=== PATIENT | male | born 1965 | race Caucasian/White ===

== ENCOUNTER 2019-07-03 19:25 | Emergency (ER) | payer SELFPAY ==
[~2019-07-03] VITALS: Ht 188 cm; Wt 106.8 kg
[2019-07-03 19:28] VITALS: BP 132/85
--- NOTE | 2019-07-03 19:41 | NUR ---
FINANCIAL SYSTEMS MANAGER: PER MALA ALAN, PT WAS HERE LAST WEEK WITH A DIFFERENT NAME. PT LEFT LWBS.
== END 2019-07-03 19:44 | disposition left against medical advice (07) ==
LOC: ED 19:35
DX: M79.673 Pain in unspecified foot (principal); R60.9 Edema, unspecified

== ENCOUNTER 2019-08-15 05:47 | Emergency (ER) | payer SELFPAY ==
[~2019-08-15] VITALS: Ht 188 cm; Wt 96.2 kg
[2019-08-15 05:50] VITALS: BP 146/102
--- NOTE | 2019-08-15 06:08 | NUR ---
pt sitting up on gurney, call light within reach. erp at bedside for eval
--- NOTE | 2019-08-15 06:14 | NUR ---
integrated logistics support manager at pt's bedside for ecg
== END 2019-08-15 06:50 ==
LOC: ED 06:35
DX: R06.00 Dyspnea, unspecified (principal); F41.1 Generalized anxiety disorder; I44.4 Left anterior fascicular block
CPT/HCPCS: 93005; 99283